=== PATIENT | male | born 1965 | race Caucasian/White ===

== ENCOUNTER 2024-02-12 08:36 | Emergency (ER) | payer OTHER, SELFPAY ==
[2024-02-12 10:10] LABS: Troponin I 0.012 ng/mL (< 0.028)
[2024-02-12 10:11] LABS: ALT (SGPT) 18 U/L (8-55); AST (SGOT) 14 U/L (5-34); Albumin 4.4 g/dL (3.5-5.0); Alkaline Phosphatase 152 U/L (40-110); Anion Gap 18 mmol/L (10-20); BUN (Urea Nitrogen) 16 mg/dL (8.4-25.7); Calc. Creatinine Clearance 0 mL/min (70-130); Calcium 9.6 mg/dL (7.8-10.44); Carbon Dioxide 27 mmol/L (22-29); Chloride 99 mmol/L (98-107); Estimated GFR 96; Glucose 140 mg/dL (70-105); Potassium 4.7 mmol/L (3.5-5.1); Protein, Total 6.4 g/dL (6.0-8.3); Sodium 139 mmol/L (136-145)
[2024-02-12] MEDS ORDERED: Furosemide 20 MG (2 mL) VIAL ONE (10:34)
[2024-02-12 10:46] LABS: Hematocrit 37.6 % (42.0-52.0); Mean Corpuscular Volume 99.9 fl (78.0-98.0); Mean Platelet Volume 6.7 fL (7.4-10.4); Platelet Count 116 10x3/uL (130-400); Red Blood Cell (RBC) Count 3.76 mill/uL (4.70-6.10)
[2024-02-12 10:47] LABS: White Blood Cell (WBC) Count 43.9 10x3/uL (4.8-10.8)
[2024-02-12 10:48] LABS: %Neutrophils 37.1 % (42.0-75.0); Mean Corpuscular HGB CONC 30.8 g/dL (32.0-36.0); Mean Corpuscular Hemoglobin 25.2 pg (27.0-31.0)
[2024-02-12 10:49] LABS: %Lymphocytes 25.7 % (21.0-51.0); %Monocytes 17.1 % (0.0-10.0)
[2024-02-12 10:51] LABS: #Neutrophils 0.5 thou/uL (1.40-6.50)
[2024-02-12 10:52] LABS: #Monocytes 0.5 thou/uL (0.11-0.59)
== END 2024-02-12 11:47 | disposition home or self-care (01) ==
LOC: NAV ERS 08:36
DX: C91.10 Chronic lymphocytic leukemia of B-cell type not having achieved remission (principal); M89.9 Disorder of bone, unspecified; I50.9 Heart failure, unspecified
CPT/HCPCS: 71046; 72170; 80053; 83880; 84484; 85025; 85379; 93005; 96374; J1940

== ENCOUNTER 2024-03-28 08:15 | Emergency (ER) | payer OTHER ==
[2024-03-28] MEDS ORDERED: Adenosine 6 mg (2 mL) VIAL ONE ×2 (08:25)
[2024-03-28 09:06] LABS: ALT (SGPT) 24 U/L (8-55); AST (SGOT) 15 U/L (5-34); Albumin 3.6 g/dL (3.5-5.0); Alkaline Phosphatase 80 U/L (40-110); Anion Gap 18 mmol/L (10-20); BUN (Urea Nitrogen) 19 mg/dL (8.4-25.7); Bilirubin, Total 1.5 mg/dL (0.2-1.2); Calc. Creatinine Clearance 0 mL/min (70-130); Calcium 8.4 mg/dL (7.8-10.44); Carbon Dioxide 25 mmol/L (22-29); Chloride 96 mmol/L (98-107); Estimated GFR 100; Globulin 1.9 g/dL (2.4-3.5); Glucose 295 mg/dL (70-105); Potassium 4.7 mmol/L (3.5-5.1); Protein, Total 5.5 g/dL (6.0-8.3); Sodium 134 mmol/L (136-145)
[2024-03-28 09:08] LABS: Troponin I Less than 0.010 ng/mL (< 0.028)
[2024-03-28 09:16] LABS: Hematocrit 31.7 % (42.0-52.0); Hemoglobin 10.2 g/dL (14.0-18.0); Mean Corpuscular Hemoglobin 28.7 pg (27.0-31.0); Mean Corpuscular Volume 89.5 fl (78.0-98.0); Mean Platelet Volume 8.5 fL (7.4-10.4); Platelet Count 48 10x3/uL (130-400); RBC Distribution Width 16.1 % (11.5-14.5); Red Blood Cell (RBC) Count 3.55 mill/uL (4.70-6.10); White Blood Cell (WBC) Count 3.9 10x3/uL (4.8-10.8)
[2024-03-28 09:17] LABS: MDiff Complete? YES
[2024-03-28 09:18] LABS: Anisocytosis SLIGHT = 6-15 cells (100X) (0-5/hpf); Band 1 % (5-11); Hypochromia SLIGHT = 6-15 cells (100X) (0-5/hpf); Lymphocytes 21 % (21-51); Monocytes 9 % (0-10); Neutrophil 69 % (42-75); Rouleaux Formation MODERATE= 6-15 cells (100X) (None Seen)
[2024-03-28 09:19] LABS: Platelet Adequacy Comment Appears Decreased
== END 2024-03-28 10:43 | disposition home or self-care (01) ==
LOC: NAV ERS 08:15
DX: I47.10 Supraventricular tachycardia, unspecified (principal); I50.9 Heart failure, unspecified
CPT/HCPCS: 36415; 71045; 80053; 84484; 85025; 93005; 96374; J0153

== ENCOUNTER 2024-05-30 23:38 | Emergency (ER) | payer OTHER | END 2024-05-31 00:40 | disposition home or self-care (01) | LOC: NAV ERS 23:38 | DX: I47.10 Supraventricular tachycardia, unspecified (principal); I50.9 Heart failure, unspecified; C91.10 Chronic lymphocytic leukemia of B-cell type not having achieved remission | CPT/HCPCS: 93005 ==

== ENCOUNTER 2024-06-11 04:55 | Emergency (ER) | payer OTHER ==
[2024-06-11] MEDS ORDERED: Sodium Chloride 0.9% 1,000 ML ONE (07:11)
[2024-06-11 07:13] LABS: #Basophils 0.1 thou/uL (0.0-0.2); #Lymphocytes 0.5 thou/uL (1.20-3.40); #Monocytes 1.1 thou/uL (0.11-0.59); #Neutrophils 3.6 thou/uL (1.40-6.50); %Basophils 1.2 % (0.0-1.0); %Lymphocytes 9.7 % (21.0-51.0); %Neutrophils 67.7 % (42.0-75.0); Hematocrit 36.5 % (42.0-52.0); Mean Corpuscular HGB CONC 32.8 g/dL (32.0-36.0); Mean Corpuscular Hemoglobin 28.1 pg (27.0-31.0); Mean Corpuscular Volume 85.8 fl (78.0-98.0); Mean Platelet Volume 7.4 fL (7.4-10.4); Platelet Count 104 10x3/uL (130-400); RBC Distribution Width 14.1 % (11.5-14.5); Red Blood Cell (RBC) Count 4.26 mill/uL (4.70-6.10); White Blood Cell (WBC) Count 5.3 10x3/uL (4.8-10.8)
[2024-06-11] MEDS ORDERED: Adenosine 6 mg (2 mL) VIAL ONE (07:15)
[2024-06-11 07:24] LABS: INR-International Normal Ratio 1.3; Prothrombin Time 16.3 sec (12.0-14.7)
[2024-06-11 07:25] LABS: PTT 36.6 sec (22.9-36.1)
[2024-06-11 07:28] LABS: D-Dimer Test 0.28 mcg/mL (0.27-0.43)
[2024-06-11 07:30] LABS: Troponin I Less than 0.010 ng/mL (< 0.028)
[2024-06-11 07:33] LABS: ALT (SGPT) 15 U/L (8-55); AST (SGOT) 13 U/L (5-34); Alkaline Phosphatase 60 U/L (40-110); Anion Gap 11 mmol/L (10-20); BUN (Urea Nitrogen) 16 mg/dL (8.4-25.7); Bilirubin, Total 1.3 mg/dL (0.2-1.2); Calc. Creatinine Clearance 0 mL/min (70-130); Calcium 8.8 mg/dL (7.8-10.44); Carbon Dioxide 26 mmol/L (22-29); Chloride 103 mmol/L (98-107); Estimated GFR 104; Globulin 1.2 g/dL (2.4-3.5); Glucose 135 mg/dL (70-105); Magnesium 2.2 mg/dL (1.6-2.6); Potassium 4.1 mmol/L (3.5-5.1); Protein, Total 5.2 g/dL (6.0-8.3); Sodium 136 mmol/L (136-145)
[2024-06-11] MEDS ORDERED: NEOMYCIN-POLYMYXIN-HC EAR SUSP 200 DROP/10 ML BOT ONE (07:53)
== END 2024-06-11 08:25 | disposition home or self-care (01) ==
LOC: NAV ERS 04:55
DX: I47.10 Supraventricular tachycardia, unspecified (principal); K56.41 Fecal impaction; R33.9 Retention of urine, unspecified; Z87.891 Personal history of nicotine dependence
CPT/HCPCS: 51701; 71045; 74176; 80053; 83735; 83880; 84484; 85025; 85379; 85610; 85730; 93005; 96374; J0153; J7030

== ENCOUNTER 2024-06-17 22:37 | Emergency (ER) | payer OTHER ==
[2024-06-17] MEDS ORDERED: Sodium Chloride 0.9% 1,000 ML ONE (22:48)
[2024-06-17] MEDS ORDERED: Metoprolol Tartrate 5 MG (5 mL) VIAL ONE (22:48)
[2024-06-17] MEDS ORDERED: Metoprolol Tartrate 25 MG TAB ONE (22:50)
[2024-06-17 22:54] LABS: #Basophils 0.1 thou/uL (0.0-0.2); #Monocytes 0.7 thou/uL (0.11-0.59); #Neutrophils 3.9 thou/uL (1.40-6.50); %Lymphocytes 30.1 % (21.0-51.0); %Monocytes 10.5 % (0.0-10.0); %Neutrophils 58.4 % (42.0-75.0); Hematocrit 38.7 % (42.0-52.0); Hemoglobin 12.8 g/dL (14.0-18.0); Mean Corpuscular HGB CONC 33.2 g/dL (32.0-36.0); Mean Corpuscular Hemoglobin 28.8 pg (27.0-31.0); Mean Corpuscular Volume 86.7 fl (78.0-98.0); Mean Platelet Volume 7.3 fL (7.4-10.4); Platelet Count 119 10x3/uL (130-400); RBC Distribution Width 13.8 % (11.5-14.5); Red Blood Cell (RBC) Count 4.46 mill/uL (4.70-6.10); White Blood Cell (WBC) Count 6.6 10x3/uL (4.8-10.8)
[2024-06-17 23:10] LABS: Troponin I 0.026 ng/mL (< 0.028)
[2024-06-17 23:11] LABS: ALT (SGPT) 19 U/L (8-55); AST (SGOT) 17 U/L (5-34); Alkaline Phosphatase 62 U/L (40-110); Anion Gap 12 mmol/L (10-20); BUN (Urea Nitrogen) 14 mg/dL (8.4-25.7); Bilirubin, Total 0.7 mg/dL (0.2-1.2); Calc. Creatinine Clearance 0 mL/min (70-130); Calcium 9.3 mg/dL (7.8-10.44); Carbon Dioxide 27 mmol/L (22-29); Chloride 100 mmol/L (98-107); Estimated GFR 101; Globulin 1.6 g/dL (2.4-3.5); Glucose 122 mg/dL (70-105); Potassium 4.1 mmol/L (3.5-5.1); Protein, Total 5.6 g/dL (6.0-8.3); Sodium 135 mmol/L (136-145)
[2024-06-18 01:53] LABS: Troponin I 0.027 ng/mL (< 0.028)
== END 2024-06-18 02:12 | disposition home or self-care (01) ==
LOC: NAV ERS 22:37
DX: I47.10 Supraventricular tachycardia, unspecified (principal); E86.0 Dehydration; R00.2 Palpitations; Z87.891 Personal history of nicotine dependence
CPT/HCPCS: 71045; 80053; 83735; 84484; 85025; 93005; 96360; J7030